=== PATIENT | female | born 1955 | race Caucasian/White ===

== ENCOUNTER 2019-06-06 19:24 | Inpatient (IN) | payer BC ==
[~2019-06-06] VITALS: Ht 157.5 cm; Wt 54.0 kg
[~2019-06-06 19:24] MED LIST: DEPAKOTE ER500 MG PO; HYDROCHLOROTHIA25 M2 PO; LISINOPRIL20 MG PO; NORCO 5-325 TA1 EACH PO
[2019-06-06 19:25] VITALS: BP 140/57
[2019-06-06] MEDS ORDERED: DEPAKOTE ER500 M1 PO (19:46)
[2019-06-06] MEDS ORDERED: LISINOPRIL2.5 MG PO (19:48)
[2019-06-06 20:35] LABS: ABSOLUTE NEUTROPHILS 10.2 thou/uL (1.4-8.2); BASOPHILS 0.5 % (0.0-2.0); EOSINOPHILS 0.7 % (0.0-3.0); HEMATOCRIT 37.1 % (37.0-47.0); LYMPHOCYTES 9.3 % (24.0-44.0); MCH 28.8 pg (26.0-34.0); MCHC 32.4 g/dL (28.0-37.0); MONOCYTES 4.6 % (1.0-8.0); PLATELET COUNT 197 thou/uL (150-400); POLYS 84.9 % (36.0-66.0); RBC 4.17 mil/uL (4.20-5.00); RDW 13.5 % (10.5-14.5)
[2019-06-06 20:46] LABS: ANION GAP 8 mmol/L (7-16); BUN 22 mg/dL (7-18); CALCIUM 9.4 mg/dL (8.5-10.1); CHLORIDE 100 mmol/L (98-107); CO2 31 mmol/L (21-32); CREATININE 0.9 mg/dL (0.6-1.0); GLUCOSE 87 mg/dL (74-106); POTASSIUM 3.9 mmol/L (3.5-5.1); SODIUM 139 mmol/L (136-145)
[2019-06-06 20:57] LABS: ALBUMIN 3.5 g/dL (3.4-5.0); DIRECT BILIRUBIN < 0.1 mg/dL (<0.1-0.2); LIPASE 142 U/L (73-393); SGOT 17 U/L (15-37); SGPT 10 U/L (30-65); TOTAL BILIRUBIN 0.3 mg/dL (<0.1-1.0); TROPONIN-I <0.06 ng/mL (<0.06)
[2019-06-06 22:16] LABS: URINE BILIRUBIN NEGATIVE (Negative); URINE BLOOD NEGATIVE (Negative); URINE CLARITY CLEAR; URINE COLOR YELLOW; URINE GLUCOSE-RANDOM* NEGATIVE (Negative); URINE KETONES TRACE (Negative); URINE LEUKOCYTES-REFLEX NEGATIVE (Negative); URINE NITRITE-REFLEX NEGATIVE (Negative); URINE PROTEIN (DIPSTICK) NEGATIVE (Negative); URINE UROBILINOGEN 0.2 E.U./dl (0.2-1.0)
[2019-06-06 23:27] VITALS: BP 131/65
[2019-06-07] VITALS (8 sets, daily range): BP systolic 93–118; BP diastolic 47–62
[2019-06-07 06:34] LABS: HEMOGLOBIN 11.5 gm/dL (12.0-15.0); MCH 29.2 pg (26.0-34.0); MCHC 32.7 g/dL (28.0-37.0); MCV 89.2 fL (80.0-100.0); RBC 3.93 mil/uL (4.20-5.00); RDW 13.5 % (10.5-14.5); WBC 8.1 thou/uL (4.0-11.0)
[2019-06-07 06:46] LABS: PROTIME 10.7 Seconds (9.3-11.4)
[2019-06-07 06:47] LABS: CALCIUM 8.7 mg/dL (8.5-10.1); CREATININE 0.7 mg/dL (0.6-1.0)
--- NOTE | 2019-06-07 08:08 | NUR ---
PT ARRIVED FROM ER AT 0200. ADMITTED WITH ABDOMINAL PAIN. AMBULATING TO BATHROOM WITH STANDBY ASSIST AND IS TOLERATING FAIR. DENIES NAUSEA. DENIES NEED FOR PAIN MEDICINE. RESTING COMFORTABLY. NO NEEDS VOICED. CALL LIGHT WITHIN REACH. FREQUENT OBSERVATION.
--- NOTE | 2019-06-07 18:30 | NUR ---
PT ASSESSED AT START OF SHIFT. OR NURSES CAME AFTER PT AT 1000 TO TAKE TO THE OR FOR HERNIA REPAIR. PT RETURNED AT 1445 ALERT BUT DROWSY. PT STATED SHE WAS IN SOME PAIN BUT FELL IMMEDIATELY TO SLEEP AND PHYSICIAN DTR AT BEDSIDE WANTED TO HOLD MED UNTIL MOTHER MORE ALERT. VS LOW AT FIRST THEN CAME UP. VOIDED ON BEDPAN. ABD BINDER IN PLACE NO DRAINAGE NOTED ON ABD DSNG. TAKING SOME CLEAR W/O NAUSEA. FAMILY CARING FOR PT AT BEDSIDE.
[2019-06-08] VITALS (61 sets, daily range): BP systolic 72–156; BP diastolic 32–75
[2019-06-08 06:47] LABS: HEMOGLOBIN 10.1 gm/dL (12.0-15.0); MCH 29.4 pg (26.0-34.0); MCHC 32.7 g/dL (28.0-37.0); MCV 90.1 fL (80.0-100.0); RBC 3.44 mil/uL (4.20-5.00); RDW 13.6 % (10.5-14.5); WBC 13.3 thou/uL (4.0-11.0)
[2019-06-08 07:01] LABS: ALBUMIN 2.4 g/dL (3.4-5.0); CREATININE 1.2 mg/dL (0.6-1.0); MAGNESIUM 1.4 mg/dL (1.8-2.4); TOTAL BILIRUBIN 0.7 mg/dL (<0.1-1.0); TOTAL PROTEIN 5.2 g/dL (6.4-8.2)
--- NOTE | 2019-06-08 08:42 | NUR ---
PT LYING IN BED. VOIDING PER BED OLIVARES. LORTAB PROVIDING PAIN RELIEF. DAUGHTER AT BEDSIDE. 0400--BLOOD PRESSURES RUNNING 80'S OVER 40'S. CONTACTED NURSE PRACTIONER WHO ORDERED A 500ML BOLUS OF NS--ADMINSTERED. OUTPUT FOR SHIFT 300ML. AFTER BOLUS BP REMAINS 84/40. CONTACTED RESIDENTIAL INSTALLER WHO ORDERED STAT LABS WELL A TRANSFER TO ICU. PT TRANSFERRED TO ICU RM 238 AT 0645.
--- NOTE | 2019-06-08 09:26 | NUR ---
pt down from 4s with changes vs. pt family, spouse and daugher jovi sue at bedside. intrto to cm. pt open and close eyes during visit. per family " independent, cook, clean, excerise daily. no dme needs. lots steps in the home. pt and spouse will be going to daughters sterling espana who only has 2 steps to enter then everything main level to recover after hospital. primary dr pierce no past home health or post acute rehab."/jorge espana. will cont following as needed for dc needs.
--- NOTE | 2019-06-08 11:24 | 2DMMODE ---
[facility] Jovanny [email or web address] [address] 2 D/M-MODE ECHOCARDIOGRAM Name: TIERRA BEST Room #: 238-P ADM IN M.R.#: [id number] Admission: 06/06/19 Attend Phys: Manuel Sanchez MD Discharge: Date of : 53 Report #: [id number] THIS REPORT FOR: cc: Nahomi Martínez MD, Rochelle M. MD Park, Jin S. MD ~ APPROVED REPORT Study performed: 06/08/2019 10:43:41 EXAM: Comprehensive 2D, Doppler, and color-flow Echocardiogram Patient Location: ICU Room #: 238 Status: routine BSA: 1.47 HR: 81 bpm BP: 94/49 mmHg Rhythm: NSR Other Information Study Quality: Technically Limited Technically limited study due to post operative dressings, inability to position patient. Indications Hypotension Post-op Volumes Left Atrial Volume (Systole) Single Plane 4CH: 27.85 mL Single Plane 2CH: 24.78 mL LA ESV Index: 20.00 mL/m2 Aortic Valve AoV Peak Vadim.: 1.55 m/s AO Peak Gr.: 9.63 mmHg LVOT Max P.91 mmHg LVOT Max V: 1.31 m/s Mitral Valve E/A Ratio: 1.1 MV Decel. Time: 174.75 ms MV E Max Vadim.: 1.34 m/s MV A Vadim.: 1.23 m/s MV PHT: 50.68 ms IVRT: 69.20 ms [facility] [address] [email or web address] [address] 2 D/M-MODE ECHOCARDIOGRAM Name: TIERRA BEST Room #: 238-P [facility] IN ..#: [id number] Admission: 06/06/19 Attend Phys: Manuel Sanchez MD Discharge: Date of : 53 Report #: [id number] Pulmonary Vein P Vein S: 0.59 m/s P Vein A: 0.31 m/s P Vein D: 0.42 m/s P Vein A Dur.: 110.7 msec P Vein S/D Ratio: 1.40 Tricuspid Valve TR Peak Vadim.: 2.74 m/s TR Peak Gr.: 30.04 mmHg PA Pressure: 30.00 mmHg Left Ventricle The left ventricle is normal size. There is normal LV segmental wall motion. There is normal left ventricular wall thickness. The left ventricular systolic function is normal. The left ventricular ejection fraction is within the normal range. LVEF is 55-60%. Right Ventricle The right ventricle is normal size. The right ventricular systolic function is normal. Atria The left atrium size is normal. The right atrium size is normal. Aortic Valve The aortic valve is normal in structure. No aortic regurgitation is present. There is no aortic valvular stenosis. Mitral Valve The mitral valve is normal in structure. There is no mitral valve regurgitation noted. No evidence of mitral valve stenosis. Tricuspid Valve The tricuspid valve is normal in structure. There is trace tricuspid regurgitation. Estimated PAP 30 mmHg plus the right atrial pressure. Pulmonic Valve The pulmonary valve is normal in structure. There is no pulmonic valvular regurgitation. Great Vessels The aortic root is normal in size. IVC is not well visualized. Pericardium [facility] [address] [place] [address] 2 D/M-MODE ECHOCARDIOGRAM Name: TIERRA BEST Room #: 238- ADM IN ..#: [id number] Admission: 06/06/19 Attend Phys: Manuel Sanchez MD Discharge: Date of : 53 Report #: [id number] There is no pericardial effusion. <Conclusion> The left ventricle is normal size. There is normal left ventricular wall thickness. The left ventricular systolic function is normal. The right ventricle is normal size. The left atrium size is normal. The aortic valve is normal in structure. There is no mitral valve regurgitation noted. There is trace tricuspid regurgitation. Estimated PAP 30 mmHg plus the right atrial pressure. <ELECTRONICALLY SIGNED> By: Hang De La Rosa MD 06/08/19 1123 1123 Jyoti Hang De La Rosa MD /INF
--- NOTE | 2019-06-08 17:46 | NUR ---
ASSESSMENTS AND INTERVENTIONS DOCCUMENTED. PATIENT TRANSFERRED TO ICU BY END MATCHER AND RN. PATIENT HAVING HYPOTENSION. FLUID BOLUS GIVEN PATIENT RESPONSIVE. DIASTOLIC BP STILL REMAINS LOW AT TIMES. PATIENT HAVING PAIN AND MEDICATION GIVEN. PATIENT RESTING QUIETLY THROUGH OUT THE SHIFT. ABX WERE STARTED PER KAMLESH. BLOOD CULTURES TO BE DRAWN. PATIENT NOT PROGRESSING TOWARDS GOALS AT THIS TIME EVIDENCE BY INTERMITTENT HYPOTENSION.
[2019-06-09] VITALS (16 sets, daily range): BP systolic 113–153; BP diastolic 35–90
[2019-06-09 04:55] LABS: ALBUMIN 2.2 g/dL (3.4-5.0); ANION GAP 9 mmol/L (7-16); BUN 11 mg/dL (7-18); CALCIUM 7.8 mg/dL (8.5-10.1); CHLORIDE 103 mmol/L (98-107); CO2 25 mmol/L (21-32); CREATININE 0.8 mg/dL (0.6-1.0); GLUCOSE 68 mg/dL (74-106); PHOSPHORUS 2.3 mg/dL (2.5-4.9); POTASSIUM 3.8 mmol/L (3.5-5.1); SODIUM 137 mmol/L (136-145); TROPONIN-I <0.06 ng/mL (<0.06)
[2019-06-09 05:24] LABS: HEMATOCRIT 31.9 % (37.0-47.0); HEMOGLOBIN 10.6 gm/dL (12.0-15.0); MCH 29.9 pg (26.0-34.0); MCHC 33.1 g/dL (28.0-37.0); MCV 90.1 fL (80.0-100.0); RBC 3.54 mil/uL (4.20-5.00); RDW 13.4 % (10.5-14.5); WBC 10.4 thou/uL (4.0-11.0)
--- NOTE | 2019-06-09 07:00 | NUR ---
ASSUMED CARE OF PT AT 2315. NO CHANGES OVERNIGHT. NO HYPOTENSION; MAP MAINTAINED > 65. PT C/O MINIMAL PAIN. PT IS PROGRESSING. WILL CONTINUE TO MONITOR.
--- NOTE | 2019-06-09 15:55 | NUR ---
ASSUMED CARE AT SHIFT CHANGE, ALERT AND ORIENTED X4. VSS AND RUNNING A LOW GRADE OF 99.1 AND NOW SHE IS BACK TO NORMAL. UP WALKING WITH FAMILY, AND DENIES ANY DIZZINESS. PAIN 2-3/10, AND MEDICATED WITH SCHEDULED TYLENOL. AND WILL CONTINUE WITH POC.
[2019-06-10 00:16] VITALS: BP 123/57
--- NOTE | 2019-06-10 03:44 | NUR ---
ASSUMED PT CARE AROUND 191. AXOX3. DTR AT BEDSIDE AT ALL TIMES TO ACCOMODATE PT NEEDS. ASKED DTR TO CALL NURSING FOR BATHROOM FOR ACCURATE I&O AND BM. NEEDS REINFORCEMENT. 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 PT'S VERBALLY CONSENTED DTR'S PARTICIPATION MEDICAL DECISIONS. RICKY CHO TRUCK GUARD WAS REACHED OUT AND DYNAMITE PACKING MACHINE OPERATOR WILL NOT CHANGE PRESCRIBED IV ATB OR PUT PT ON ALTERNATIVE ATB. PT REFUSED IV ATB AND WANTS TO SPEAK TO IN AM AND DISCUSS POSS DIFFERENT ATB. PT ALSO REFUSED IBUPROFEN PER DTR'S REC. CHARTED ACCORDINGLY. ABD DRESSINGS WERE CHANGES AT BEDSIDE PER MD ORDER. NO S/S ACUTE DISTRESS NOTED OR REPORTED AT THIS TIME. WILL CONT TO MONITOR FOR ANY CHANGES IN CONDITION.
[2019-06-10 05:00] VITALS: BP 126/63
[2019-06-10 05:27] LABS: ABSOLUTE NEUTROPHILS 6.7 thou/uL (1.4-8.2); BASOPHILS 0.4 % (0.0-2.0); EOSINOPHILS 1.1 % (0.0-3.0); HEMATOCRIT 28.1 % (37.0-47.0); HEMOGLOBIN 9.4 gm/dL (12.0-15.0); LYMPHOCYTES 15.8 % (24.0-44.0); MCH 29.8 pg (26.0-34.0); MCHC 33.4 g/dL (28.0-37.0); MCV 89.2 fL (80.0-100.0); MONOCYTES 7.9 % (1.0-8.0); PLATELET COUNT 161 thou/uL (150-400); POLYS 74.8 % (36.0-66.0); RBC 3.15 mil/uL (4.20-5.00); RDW 13.3 % (10.5-14.5); WBC 8.9 thou/uL (4.0-11.0)
[2019-06-10 05:34] LABS: ALBUMIN 2.1 g/dL (3.4-5.0); CALCIUM 7.6 mg/dL (8.5-10.1); CREATININE 0.8 mg/dL (0.6-1.0); MAGNESIUM 1.7 mg/dL (1.8-2.4); POTASSIUM 3.7 mmol/L (3.5-5.1)
[2019-06-10 16:30] VITALS: BP 143/66
--- NOTE | 2019-06-10 16:41 | NUR ---
Assumed pt care at 7am.Pt in bed resting without c/o.Dtr at bs at all times assisting with care.Pt up in chair for all meals.Good appetite.Dr mauro and Zabrina here.order noted.Pt ambulated in hallways with dtr several times today. Good endurance noted.Lower extremities elevated whenever pt in chair resting.Will continue to monitor.
[2019-06-10 20:00] VITALS: BP 105/80
[2019-06-10 23:42] VITALS: BP 123/53
[2019-06-11 01:11] LABS: CORTISOL 30 MIN 16.6 ug/dL (Not Estab.); CORTISOL 60 MIN 25.7 ug/dL (Not Estab.); CORTISOL BASELINE 7.7 ug/dL (())
--- NOTE | 2019-06-11 07:21 | NUR ---
ASSUMED PT CARE AROUND 1914. AXOX4. ABD DRESSING CHANGED. VSS. NO S/S ACUTE DISTRESS NOTED OR REPORTED AT THIS TIME. CARE TRANSFERRED TO INCOMING RN AT THIS TIME. CARE TRANSFERRED TO INCOMING RN AT THIS TIME.
[2019-06-11] MEDS ORDERED: TRAMADOL 50 MG50 MG PO (08:18)
[2019-06-11 08:47] LABS: HEMATOCRIT 29.7 % (37.0-47.0); HEMOGLOBIN 9.7 gm/dL (12.0-15.0); MCH 29.3 pg (26.0-34.0); MCHC 32.6 g/dL (28.0-37.0); MCV 89.8 fL (80.0-100.0); RBC 3.31 mil/uL (4.20-5.00); RDW 13.4 % (10.5-14.5); WBC 6.4 thou/uL (4.0-11.0)
[2019-06-11 08:59] LABS: ALBUMIN 2.2 g/dL (3.4-5.0); CALCIUM 8.8 mg/dL (8.5-10.1); CREATININE 0.7 mg/dL (0.6-1.0); MAGNESIUM 1.7 mg/dL (1.8-2.4); PHOSPHORUS 2.9 mg/dL (2.5-4.9); POTASSIUM 3.7 mmol/L (3.5-5.1)
--- NOTE | 2019-06-11 09:34 | HC ---
[facility] [place] [address] CONSULTATION Name: TIERRA BEST Room #: 455-P ADM IN M.R.#: [id number] Admission: 06/06/19 Attend Phys: Eulalia Brooks Discharge: Date of : 53 Report #: [id number] THIS REPORT FOR: cc: Nahomi Martínez MD, Rochelle M. MD Al-Mubaslat, Ahmad MD ~ CC: Eulalia Martínez DATE OF SERVICE: 06/10/2019 ENDOCRINE CONSULTATION NOTE CONSULTING PHYSICIAN: Dr. Eulalia Brooks. PRIMARY CARE PHYSICIAN: Dr. Nahomi Martínez. REASON FOR CONSULTATION: Hypotension, hypocortisolemia. HISTORY OF PRESENT ILLNESS: This is a 64-year-old female patient whose medical background is primarily significant for hypertension, hyperlipidemia, who presented to the ER on 05/28/2019 with the main issue of sudden onset lower abdominal pain starting the day of admission. This was associated with nausea and vomiting. Subsequently, the patient was admitted to the hospital where she was found to have a ventral hernia with small-bowel obstruction and underwent a repair with mesh placement and did well thereafter. However, during her hospital stay, the patient was noted to become hypotensive requiring fluid resuscitation. The patient had blood pressure as low as 72/32 recorded during this period and again eventually did well with fluid support. Interestingly, the patient's background is significant for hypertension that is typically well controlled on lisinopril monotherapy. The patient notes that she has lost over 50 pounds during the last year, partially due to becoming more active and exercising dietary changes. She does not typically experience a chronic abdominal pain, nausea or vomiting. The patient's daughter who is a tail ripper indicated that her mom had at least 5 bouts of syncope over the past year and that these were generally attributed to hypotension, which led to some therapeutic changes of her antihypertensive regimen. REVIEW OF SYSTEMS: CONSTITUTIONAL: Fatigue, tiredness, weight loss as noted above. No fever or chills. HEENT: Negative for sore throat, sinus pain, ear drainage. [facility] [address] [place] [address] CONSULTATION Name: TIERRA BEST Room #: 455-P ADM IN M.R.#: [id number] Admission: 06/06/19 Attend Phys: Eulalia Brooks Discharge: Date of : 53 Report #: [id number] PULMONARY: Negative for shortness of breath, cough or hemoptysis. CARDIAC: Negative for chest pain, palpitations, but noted for multiple syncopal episodes over the past year as well as occasional lightheadedness. Also noted for hypotension recorded earlier during her hospital stay. GASTROINTESTINAL: Noted for recent abdominal pain, but not chronically. Noted for nausea and vomiting, but not chronically. She has had chronic issues with constipation. NEUROLOGY: Negative for seizure activity, frequent severe headaches, numbness, or tremors. PSYCHIATRIC: Negative for delusions or hallucinations. UROLOGY: Negative for dysuria, hematuria, or frequency. Otherwise, review of system is noncontributory unless mentioned in HPI. PAST MEDICAL HISTORY: Noted for: 1. Hypertension. 2. Hyperlipidemia. 3. Anxiety. CURRENT MEDICATIONS: Include lisinopril 20 mg daily, Depakote ER 500 mg b.i.d. ALLERGIES: PENICILLIN. FAMILY HISTORY: Noncontributory. SOCIAL HISTORY: She is , has children. Lives with her . Denies use of tobacco or alcohol. PHYSICAL EXAMINATION: GENERAL: Pleasant female patient not in apparent distress. VITAL SIGNS: Blood pressure currently is at 126/63 mmHg, heart rate is 88 beats per minute, respirations 18 per minute, temperature 36.9 degrees. CONSTITUTIONAL: The patient is sitting upright in her chair, appears comfortable, not in pain or distress. HEENT: Anicteric sclerae. Intact extraocular motions. NECK: Supple, without JVD, carotid bruits and no thyromegaly. CHEST: Noted for moderate entry bilaterally with scattered rales. HEART: Regular rate and rhythm without murmurs or gallops. ABDOMEN: Soft and lax. No tenderness or organomegaly. Slight discomfort on deep palpation. EXTREMITIES: Lower extremity exam is negative for edema, skin breaks or ulcerations. NEUROLOGIC: Awake, alert, oriented and has a generally nonfocal examination. PSYCHIATRIC: Normal mood and affect appropriate, pleasant. LABORATORY DATA: Sodium 140, it remained well within normal limits throughout her hospital stay and ranged from 136-140, potassium 3.7, ranged from 3.7-4.0, [facility] [address] [place] [address] CONSULTATION Name: TIERRA BEST Room #: 455-P ADM IN M.R.#: [id number] Admission: 06/06/19 Attend Phys: Eulalia Brooks Discharge: Date of : 53 Report #: [id number] chloride 106, CO2 of 27, anion gap 7, BUN 9, creatinine 0.8, glucose 89, AST 15, lipase 142. Total bilirubin 0.7, calcium 7.6, phosphorus 2.0, magnesium 1.7, alkaline phosphatase 48, ALT 6, total protein 5.2, albumin 2.1. EGFR is 72. Lactic acid 1.2. Troponin less than 0.06. Protime 10.7, INR 1.0. White blood count 8.9, hemoglobin 9.4, hematocrit 28.1, platelets 161. TSH 4.858. Morning cortisol 3.7. ASSESSMENT AND PLAN: 1. Hypotension. As noted above, the patient developed severe hypotension requiring fluid resuscitation, which she responded to adequately. In addition to the possibility of low serum cortisol, others would include dehydration, possible sepsis, neurocardiogenic syndrome. At the time being, the patient is maintaining adequate blood pressure stability. I was pleased to find out that her daughter is a tail ripper and has been monitoring her blood pressure closely at home and is certainly capable of resuming lisinopril when deemed necessary going forward. 2. Hypocortisolemia. The possibility of hypocortisolemia (adrenal insufficiency) was suspected due to the patient's transition from her usual hypertensive baseline to hypotension. Screening cortisol level was further suspicious at 3.7. Appropriately, the patient was investigated further with a cosyntropin adrenal stimulation test, the results of which remain pending at the time of this dictation. The patient and her daughter were counseled at length about this outlook and the possibility of adrenal insufficiency. I advised her about the pathogenesis of adrenal insufficiency and about the potential role for glucocorticoids in the event that it is proven to be the case. However, I remain optimistic that she might not prove to be adrenally insufficient on the basis of her consistently stable potassium and sodium levels. Once the results are in, we can proceed with further management. 3. Hypothyroidism. The patient has an elevated TSH of 4.858. The patient was informed of this finding and I explained that this falls within the realm of subclinical hypothyroidism. Given the patient's acute illness, recent hypertension and hospital stay, I strongly preferred that the issue of hypothyroidism be revisited with a comprehensive thyroid function panel once the patient has stabilized clinically and resolved the current events in 2-3 months from now. I discussed this preference with the patient's daughter and she agreed to proceed with this or in this direction. I have reviewed the patient's clinical care notes, laboratory data, radiologic data, and other pertinent information for over 35 minutes. I certainly appreciate this consultation by Dr. Brooks. <ELECTRONICALLY SIGNED> By: Aretha Salazar MD 06/11/19 0934 1642 0017 Aretha Salazar MD /nt
[2019-06-11 09:46] VITALS: BP 123/53
--- NOTE | 2019-06-11 10:43 | NUR ---
CARE TEAM INDICATED THAT PT IS MEDICALLY STABLE TO DISCHARGE HOME THIS DAY TO SELF CARE . PT IS TO DISCHARGE TO HER DT HOUSE FOR ADDITIONAL SUPPORT UPON DC. NO OTHER CM INTERVENTION INDICATED. CASE CLOSED.
--- NOTE | 2019-06-11 10:44 | NUR ---
Assumed pt care this am, daughter is at the bedside, ambulating the halls with the daughter. Wound dressing c/d/i, diet and medications are well tolerated. Pain is at a minimal of 2 and managed only with acetamenophen. Several bowel movements have been noted yesterday and one today, some medications have been refused. IV removed no signs or verbalizations of distress have been noted. POC followed, dc instrustions given to the daughter and the pt. Pt is now dc , went home with daughter and .
--- NOTE | 2019-06-12 15:34 | EKG ---
[facility] [place] [address] ELECTROCARDIOGRAM REPORT Name: TIERRA BEST Room #: 455-P [facility] IN M.R.#: [id number] Admission: 06/06/19 Attend Phys: Eulalia Flakito Todd Discharge: 06/11/19 Date of : 53 Report #: [id number] THIS REPORT FOR: cc: Nahomi Martínez MD, Rochelle M. MD Park, Jin S. MD ~ THIS REPORT FOR: //name// [facility] ED Test Date: 2019-06-06 Test Time: 19:49:24 Pat Name: TIERRA BEST Department: Room: 444 Gender: F Research/Program Director: YEIMY : 1955 Requested By: Magy Lindsey Order Number: [id number] MD: Hang De La Rosa Measurements Intervals [place] Rate: 58 P: 63 RI: 172 QRS: 61 QRSD: 73 T: 61 QT: 431 QTc: 424 Interpretive Statements Sinus rhythm Abnormal R-wave progression, early transition No previous ECG available for comparison Electronically Signed On 06-07-2019 10:09:16 BMET by Hang De La Rosa [email or web address] <ELECTRONICALLY SIGNED> By: Hang De La Rosa MD 06/07/19 100 48 48 Hang De La Rosa MD /[facility]
--- NOTE | 2019-06-13 07:47 | O ---
[facility] [place] [address] OPERATIVE REPORT Name: TIERRA BEST Room #: 455-P [facility] IN M.R.#: [id number] Admission: 06/06/19 Attend Phys: Eulalia Brooks Discharge: 06/11/19 Date of : 53 Report #: [id number] THIS REPORT FOR: cc: Nahomi Martínez MD, Rochelle M. MD Patterson, Jonathan D. MD ~ CC: Carl Martínez DATE OF SERVICE: 06/07/2019 PREOPERATIVE DIAGNOSIS: Recurrent ventral incisional hernia. POSTOPERATIVE DIAGNOSIS: Incarcerated recurrent ventral incisional hernia. OPERATION: Laparoscopic repair of recurrent incarcerated ventral incisional hernia with mesh. SURGEON: Carl Smith MD ANESTHESIA: General. ESTIMATED BLOOD LOSS: 20 mL. SPECIMEN: None. DRAINS: None. DESCRIPTION OF PROCEDURE: After informed consent was obtained, the patient was brought to the operating room and placed supine. SCDs were placed and working, preoperative antibiotics were administered, general anesthesia was induced. The abdomen was then prepped and draped in the usual sterile fashion. A 5 mm incision was made in the left upper quadrant. A 5 mm trocar was placed under direct vision. Pneumoperitoneum was established. A left-sided 8 mm trocar and two 5 mm right-sided trocars were placed under direct vision. She had incarcerated small bowel and transverse colon into this hernia sac. I was not able to reduce this using just the laparoscope. Therefore, the pneumoperitoneum was then released. I made an incision over the hernia measuring approximately 10 cm. Cautery dissection was made down to the hernia sac. I was able to dissect the sac away from the fascial edges and reduce everything back into the abdomen. I then worked to clean off the fascia, so that I could put stitches. I then closed the fascia in a running fashion [address] [address] OPERATIVE REPORT Name: TIERRA BEST Room #: 455-P [facility] IN ..#: [id number] Admission: 06/06/19 Attend Phys: Eulalia Brooks Discharge: 06/11/19 Date of : 53 Report #: [id number] with 0 PDS. This closed the fascial defect, which measured approximately 8 cm in the midline. Prior to closure, I placed a 4 x 6 inch elliptical Bard Ventralight Echo mesh. Pneumoperitoneum was then reestablished. The Bard Echo mesh tubing was inflated. It was brought to the abdominal wall. I was then able to place 50 absorbable tacks to secure the mesh. The green tubing was then removed. I then placed 2 Midwest-Ovidio sutures in the midline using a PMI suture passer for transfascial fixation. The trocars were removed under direct vision. The skin was closed with micki. Sterile dressings were applied. COMPLICATIONS: None. DISPOSITION: The patient was taken to recovery in satisfactory condition. <ELECTRONICALLY SIGNED> By: Carl Smith MD 06/13/19 0747 1250 1826 Carl Smith MD /nt
== END 2019-06-11 10:59 | disposition home or self-care (01) | DRG 353 ==
LOC: ER 19:24 → 4W 22:41 → EROBS 22:41 → ICU 22:41 → 4S 06-07 00:08 → ICU 06-08 08:10 → 4W 06-09 17:01 → ENTRNSPT 06-11 10:44 → EDTRNSPTSTS 06-11 10:49 → 4W 06-11 10:59
PROVIDERS: Nurse Practitioner; Nurse Practitioner Family; Surgery; ADMIT Hospitalist
PROC: 0WJF4ZZ Inspection of Abdominal Wall, Percutaneous Endoscopic Approach (ICD-10-PCS; principal; 2019-06-07)
PROC: 0WUF0JZ Supplement Abdominal Wall with Synthetic Substitute, Open Approach (ICD-10-PCS; principal; 2019-06-07)
DX: K56.699 Other intestinal obstruction unspecified as to partial versus complete obstruction (principal); E43 Unspecified severe protein-calorie malnutrition; K43.0 Incisional hernia with obstruction, without gangrene; J98.11 Atelectasis; E27.40 Unspecified adrenocortical insufficiency; I10 Essential (primary) hypertension; E78.5 Hyperlipidemia, unspecified; F41.9 Anxiety disorder, unspecified; I95.9 Hypotension, unspecified; E78.00 Pure hypercholesterolemia, unspecified; Z90.49 Acquired absence of other specified parts of digestive tract; Z88.0 Allergy status to penicillin; E03.9 Hypothyroidism, unspecified; Z79.899 Other long term (current) drug therapy; Z68.21 Body mass index [BMI] 21.0-21.9, adult
CPT/HCPCS: 10040; 10078; 10195; 50010; 50093; 50101; 50249; 50411; 50555; 50848; 50979; 51412; 52265; 53307; 54022; 56524; 62110; 62900; 70005

== ENCOUNTER 2020-06-23 00:56 | Inpatient (IN) | payer BC ==
[2020-06-23] VITALS (8 sets, daily range): BP systolic 123–174; BP diastolic 71–100
[~2020-06-23] VITALS: Ht 157.5 cm; Wt 65.9 kg
[~2020-06-23 00:56] MED LIST changes: +DEPAKOTE ER500 M1 PO; +LISINOPRIL2.5 MG PO; +TRAMADOL 50 MG50 MG PO
[2020-06-23 01:28] LABS: ABSOLUTE NEUTROPHILS 5.3 thou/uL (1.4-8.2); BASOPHILS 0.8 % (0.0-2.0); HEMOGLOBIN 13.1 gm/dL (12.0-15.0); LYMPHOCYTES 23.6 % (24.0-44.0); MCH 29.2 pg (26.0-34.0); MCHC 32.8 g/dL (28.0-37.0); MONOCYTES 4.1 % (1.0-8.0); PLATELET COUNT 190 thou/uL (150-400); POLYS 68.5 % (36.0-66.0); RBC 4.49 mil/uL (4.20-5.00); RDW 12.8 % (10.5-14.5); WBC 7.8 thou/uL (4.0-11.0)
[2020-06-23 01:48] LABS: POTASSIUM 3.4 mmol/L (3.5-5.1)
[2020-06-23 01:54] LABS: ALBUMIN 3.6 g/dL (3.4-5.0); TOTAL BILIRUBIN 0.4 mg/dL (0.2-1.0); TOTAL PROTEIN 7.7 g/dL (6.4-8.2)
[2020-06-23 02:24] LABS: URINE BILIRUBIN NEGATIVE (Negative); URINE BLOOD NEGATIVE (Negative); URINE CLARITY CLEAR; URINE COLOR YELLOW; URINE GLUCOSE-RANDOM* NEGATIVE (Negative); URINE KETONES NEGATIVE (Negative); URINE LEUKOCYTES-REFLEX NEGATIVE (Negative); URINE NITRITE-REFLEX NEGATIVE (Negative); URINE PROTEIN (DIPSTICK) NEGATIVE (Negative); URINE SPECIFIC GRAVITY 1.025 (1.005-1.035); URINE UROBILINOGEN 0.2 E.U./dl (0.2-1.0)
--- NOTE | 2020-06-23 06:45 | NUR ---
Pt. arrived to the unit from the emergency room accompanied by staff. Pt. is alert and was oriented to room and staff. She does c/o some abdominal pain. No med orders. Call placed to Dr. Smith for orders.
--- NOTE | 2020-06-23 07:00 | NUR ---
Dr. Smith returned call and new orders received (see cpoe).
--- NOTE | 2020-06-23 13:59 | NUR ---
PT ADMITTED RELATED TO SBO, ABDOMINAL PAIN. CM REVIEWED CHART AND SPOKE WITH CARE TEAM. CM MET WITH PT AND HER DTR DR. MARISOL NELSON AT BEDSIDE THIS DAY. DTR INDICATED THAT WAS DOING HER AFTERNOON PRAYERS BUT THAT IT WAS ALRIGHT FOR CM TO VISIT AND SPEAK WITH THEM AT THAT TIME. DTR ANSWERED ALL ASSESSMENT QUESTIONS. 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 SHE INDICATED THAT PT HAD BEEN INDEPENDENT WITH GAIT BUT NEEDED ASSISTANCE WITH ADLS LIKE BATHING, AND COOKING. PT'S DTR INDICATED THAT PT'S DTR SEN WORKS FROM HOME AND ASSISTS PT WITH ADLS. PT'S DTR INDICATED NO HH OR POST ACUTE CARE HISTORY. SHE INDICATED THAT PLAN WOULD BE FOR PT TO RETURN HOME ONCE MEDICALLY STABLE TO SELF CARE THAT FAMILY WILL PROVIDE ALL NEEDED ASSISTANCE AND SUPERVISION. DTR INDICATED THAT PT HAS SOME COGNITVE IMPAIRMENT AND THAT SHE DOESN'T THINK PT IS APPROPRIATLY/CORRECTLY RATEING PAIN WHEN ASSESSED BY NURSING TEAM DTR EXPRESSED CONCERN ABOUT OVER USE/ADMINISTRATION OF NARCOTIC MEDICATIONS AND PT'S RISK FOR "RESPIRATORY DEPRESSION." SHE INDICATED THAT SHE WAS WANTING TO BE ABLE TO STAY OVERNIGHT WITH PT TO MONITOR AND BE ABLE TO ALERT STAFF OF ANY ISSUE. DTR HAD REACHED OUT TO HOSPITAL STAFF REGARDING REQUEST. COLLECTIONS REP AND RISK ARE INVOLVED AND WORKING TO DETEMINE PLAN. DTR ASKED ABOUT COMPLETING A DPOA WHILE HERE. CM INDICATED THAT IF CARE TEAM INDICATED THAT PT HAS CAPACITY TO DO SO A MEDICAL DPOA CAN BE COMPLETED HERE BUT THAT HAVING SAID DOCUMENT LIKELY WOULDN'T AFFECT ABILITY TO STAY OVER NIGHT. PT HAS NG IN PLACE AT THIS TIME. CM FOLLOWING REGARDING DC PLANNING.
--- NOTE | 2020-06-23 21:06 | NUR ---
ASSUMED CARE OF PATIENT APPROX 0715. PATIENT A&OX2, VSS, ABDOMINAL PAIN. DAUGHTER AT BEDSIDE. HOSPITALIST CONSULTED PER ATTENDING. PATIENT HAS NG TUBE, LOW INTERMETTENT SUCTION. PATIENT ROUNDED ON OFTEN. PATIENTS DAUGHTER IS VERY HANDS ON, THIS NURSE OFFERED ASSISTANCE OFTEN POSSIBLE. PATIENT SBA TO BEDSIDE COMMODE. PATIENTS DAUGHTER WANTS TO STAY OVERNIGHT WITH PATIENT, STATING PATIENT HAS DEMENTIA AND IT WOULD BE IN THE BEST INTEREST OF A COGNITIVELY IMPAIRED PATIENT TO HAVE AN ADVOCATE STAY WITH HER. DAUGHTER STATES PATIENT IS A POOR HISTORIAN. PATIENT HAS 1:1 SITTER OF NOW. PATIENT IS NOT IMPULSIVE, MOVED CLOSER TO NURSES STATION, TAKING PRECAUTIONS. PATIENT ON ROOM AIR. NO SIGNS OF DISTRESS. PATIENT HAS TWO IVS, FLUIDS RUNNING. WILL CONTINUE TO MONITOR.
[2020-06-24] VITALS (22 sets, daily range): BP systolic 90–158; BP diastolic 38–88
--- NOTE | 2020-06-24 02:44 | NUR ---
PT CARE ASSUMED WITH PT IN BED WITH DAUGHTER AT BEDSIDE.PT IS A/O X2.PT IS UP WITH X1 ASSIST TO BSC OR USES BEDPAN.PT C/O PAIN AND PAIN MANAGED WITH MORPHINE Q3H.DAUGHTER REQUEST NET TECHNICAL ARCHITECT OR PROVIDER TO ATTEND TO PT AT ABOUT 0200 PT C/O OF PAIN AND ASKED MORPHINE CHANGED FROM Q3H TO Q2H.PT HAS AN NG IN PLACE FOR INTERMITENT SUCTIONING .PT IS NPO.PT HAS A SITTER REQUESTED BY DAUGHTER FOR COGNITIVE IMPAIRMENTS.DAUGHTER HIGHLY INVOLVED IN PT CARE.WILL CONTINUE TO MONITOR PER POC
[2020-06-24 05:36] LABS: HEMATOCRIT 42.7 % (37.0-47.0); HEMOGLOBIN 13.9 gm/dL (12.0-15.0); MCHC 32.4 g/dL (28.0-37.0); MCV 89.5 fL (80.0-100.0); RBC 4.77 mil/uL (4.20-5.00); RDW 12.8 % (10.5-14.5); WBC 13.5 thou/uL (4.0-11.0)
[2020-06-24 06:05] LABS: CALCIUM 8.3 mg/dL (8.5-10.1); CREATININE 0.9 mg/dL (0.6-1.0); MAGNESIUM 2.1 mg/dL (1.8-2.4); POTASSIUM 4.1 mmol/L (3.5-5.1)
--- NOTE | 2020-06-24 14:54 | NUR ---
SURGICAL TEAM INDICATING THAT PT IS TO GO FOR AN EX LAP THIS DAY WITH POSSIBLE LAPAROSCOPY. FAMILY HAS EXPRESSED DESIRE FOR PT TO DC TO CCU POST PRODEDURE. CM FOLLOWING REGARDING DC PLANNING. PLAN IS FOR PT TO RETURN HOME ONCE MEDICALLY STABLE WITH FAMILY SUPPORT.
[2020-06-24 19:52] LABS: HEMATOCRIT 45.8 % (37.0-47.0); MCH 29.4 pg (26.0-34.0); MCHC 32.6 g/dL (28.0-37.0); MCV 90.2 fL (80.0-100.0); RBC 5.08 mil/uL (4.20-5.00); WBC 9.8 thou/uL (4.0-11.0)
[2020-06-24 20:01] LABS: MAGNESIUM 1.8 mg/dL (1.8-2.4); PHOSPHORUS 3.2 mg/dL (2.6-4.7); POTASSIUM 3.9 mmol/L (3.5-5.1)
[2020-06-25] VITALS (45 sets, daily range): BP systolic 100–130; BP diastolic 39–73
[2020-06-25 01:07] LABS: URINE CREATININE-RANDOM* 209.6 mg/dL; URINE SODIUM-RANDOM* <5 mmol/L
--- NOTE | 2020-06-25 02:45 | NUR ---
PT ARRIVED TO UNIT AT APPROX 1915 FROM PACU. PT WAS AXOX4, WEARING 2L NC. SEE CHARTING FOR VITALS SIGNS. NURSE TO FOLLOW PLAN OF CARE AND CONTINUE MONIORING.
[2020-06-25 05:08] LABS: HEMATOCRIT 42.9 % (37.0-47.0); MCH 29.3 pg (26.0-34.0); MCHC 32.6 g/dL (28.0-37.0); MCV 90.1 fL (80.0-100.0); RBC 4.76 mil/uL (4.20-5.00); RDW 12.9 % (10.5-14.5); WBC 16.6 thou/uL (4.0-11.0)
[2020-06-25 05:43] LABS: CALCIUM 7.6 mg/dL (8.5-10.1); MAGNESIUM 1.7 mg/dL (1.8-2.4); PHOSPHORUS 2.8 mg/dL (2.5-4.9)
--- NOTE | 2020-06-25 07:50 | NUR ---
Assumned pt care in the am of 06/24, had a sitter, though pt was not impulsive or exhibited any behaviour that would require one. Pt was calm and on the bed with NG tune connected on low intermittent suction, draining dark green fluid. Pain is managed with medication, partial relief is noted. Pt had a lap top where is the camera was open since the night and the daughters we on watching. Daughter would converse with the nurses and the pt through the laptop and daughter would prefer to spean in behalf of the pt, stating pt is cognitively impared. Though when I spoke to the pt, she is able to verbalize level or pain and location, pt is a & o x 3, was just not sure of the time. Daughter came to the bed side in the am. Pt would use the bed side commode, frequent visits to the romm was done through out the shift, pt needs attended. Surgeon came in and spoke to the pt and the daughter for surgery in the afternoon. Daughter repeatedly mentioned she wanted the pt to be transferred to either ccu or icu, informed. Pt was taken down to surgery at 3 pm, was then transferred to room 251 as per madison sup post op. Belongings were endorsed to the shift production supervisor to be sent doen to roon 251.
--- NOTE | 2020-06-25 10:30 | NUR ---
0700-ASSUMED CARE OF PT.--VW 0830-CHANGED MIDLINE ABD DRSG. SMALL AMT MURKY BROWN DRAINAGE SEEPING FROM INCISION. W LIGHT PRESSURE TO BOTH SIDES OF INCISION, ~30ML PUSSY LOOKING BROWN DRAINAGE EXPRESSED. REDRESSED. INFORMED , HE WILL BE IN ~1300.--VW 0905-PT GOTTEN OOB TO CHAIR W ASSIST OF ONE. DID VERY WELL,STEADY ON FEET.MED FOR PAIN PRIOR TO GETTING UP. SETTLED INTO CHAIR. DTR AT BEDSIDE.--VW 1030- IN TO SE.-VW
[2020-06-25 14:20] LABS: URINE BLOOD 1+ (Negative); URINE CLARITY CLEAR; URINE COLOR YELLOW; URINE GLUCOSE-RANDOM* NEGATIVE (Negative); URINE KETONES NEGATIVE (Negative); URINE LEUKOCYTES TRACE (Negative); URINE NITRITE NEGATIVE (Negative); URINE PROTEIN (DIPSTICK) 1+ (Negative); URINE SPECIFIC GRAVITY >= 1.030 (1.005-1.035); URINE UROBILINOGEN 0.2 E.U./dl (0.2-1.0)
[2020-06-25 14:24] LABS: ICTOTEST (BILI CONFIRMATORY) Negative (Negative); URINE BILIRUBIN NEGATIVE (Negative)
[2020-06-25 14:32] LABS: PROT/CREAT RATIO 0.4; URINE CREATININE-RANDOM* 202.8 mg/dL; URINE PROTEIN-RANDOM* 86.5 mg/dL (<11.9)
[2020-06-25 14:38] LABS: MUCUS 0-3 Light strn/LPF (None Seen); SQUAMOUS None Seen /LPF (0-3)
[2020-06-25 14:39] LABS: HYALINE CASTS 0-3 Few /LPF (None Seen); URINE RBC 3-10 Few /HPF (0-2); URINE WBC 0-5 Rare /HPF (0-5)
[2020-06-25 14:40] LABS: BACTERIA 1-9 Few /HPF (None Seen); CRYSTALS None Seen /LPF (None Seen)
[2020-06-25 16:53] LABS: CALCIUM 7.9 mg/dL (8.5-10.1); CREATININE 1.2 mg/dL (0.6-1.0)
[2020-06-26] VITALS (23 sets, daily range): BP systolic 115–138; BP diastolic 51–77
--- NOTE | 2020-06-26 06:32 | NUR ---
AT 2300 PT DPOA MARISOL NELSON CALLED FOR AN UPDATE ON THE PTS CONDITION. I MENTIONED THAT WHEN THE PT FELL ASLEEP SHE REQUIRED 1L NC. MARISOL WAS THEN CONCERNED THAT THE PT COULD BE VOLUME OVERLOADED WITH PULMONARY EDEMA. SHE REQUESTED THAT I CALL THE COVERING PROVIDER AND ASK THAT THEY CHANGE HER LR RATE FROM 100ML/HR TO 50CC/HR. 0231: PTS DPOA CALLED FOR AN UPDATE. 0615: PTS DPOA CALLED FOR AN UPDATE AND WANTED TO KNOW WHAT HER AM LABS LOOKED LIKE. I TOLD HER THAT THE LABS HADN'T RESULTED YET.
[2020-06-26 07:42] LABS: HEMOGLOBIN 10.2 gm/dL (12.0-15.0); MCH 29.2 pg (26.0-34.0); MCV 88.6 fL (80.0-100.0); RBC 3.5 mil/uL (4.20-5.00); RDW 13.1 % (10.5-14.5); WBC 15.7 thou/uL (4.0-11.0)
[2020-06-26 07:47] LABS: CALCIUM 7.6 mg/dL (8.5-10.1); CREATININE 0.8 mg/dL (0.6-1.0); MAGNESIUM 2.2 mg/dL (1.8-2.4); POTASSIUM 3.6 mmol/L (3.5-5.1)
[2020-06-27] VITALS (15 sets, daily range): BP systolic 119–148; BP diastolic 49–77
[2020-06-27 03:08] LABS: ALBUMIN 1.8 g/dL (3.4-5.0); CALCIUM 7.4 mg/dL (8.5-10.1); CALCIUM 7.6 mg/dL (8.5-10.1); CREATININE 0.7 mg/dL (0.6-1.0); PHOSPHORUS 1.3 mg/dL (2.5-4.9); PHOSPHORUS 1.4 mg/dL (2.5-4.9); POTASSIUM 3.3 mmol/L (3.5-5.1)
[2020-06-27 09:17] LABS: MAGNESIUM 1.9 mg/dL (1.8-2.4)
[2020-06-27 12:10] LABS: BASOPHILS 0.4 % (0.0-2.0); EOSINOPHILS 0.9 % (0.0-3.0); HEMATOCRIT 32.1 % (37.0-47.0); HEMOGLOBIN 10.8 gm/dL (12.0-15.0); LYMPHOCYTES 4.8 % (24.0-44.0); MCH 29.9 pg (26.0-34.0); MCHC 33.6 g/dL (28.0-37.0); MONOCYTES 3.5 % (1.0-8.0); PLATELET COUNT 160 thou/uL (150-400); POLYS 90.4 % (36.0-66.0); WBC 16.6 thou/uL (4.0-11.0)
--- NOTE | 2020-06-27 12:37 | NUR ---
chart review. discussed during am rounds. cm tried to visit with pt, noted through windows daughter at bedside and sayeeda up in recliner chair resting with eyes closed. will cont following as needed for dc needs.
[2020-06-27 16:18] LABS: URINE BILIRUBIN NEGATIVE (Negative); URINE BLOOD TRACE (Negative); URINE CLARITY CLEAR; URINE COLOR YELLOW; URINE GLUCOSE-RANDOM* NEGATIVE (Negative); URINE KETONES 2+ (Negative); URINE LEUKOCYTES-REFLEX TRACE (Negative); URINE NITRITE-REFLEX NEGATIVE (Negative); URINE PROTEIN (DIPSTICK) 1+ (Negative); URINE SPECIFIC GRAVITY >= 1.030 (1.005-1.035); URINE UROBILINOGEN 0.2 E.U./dl (0.2-1.0)
[2020-06-27 16:24] LABS: CALCIUM 8.2 mg/dL (8.5-10.1); CREATININE 0.7 mg/dL (0.6-1.0); POTASSIUM 3.8 mmol/L (3.5-5.1)
[2020-06-27 16:34] LABS: MUCUS >6 Heavy strn/LPF (None Seen); SQUAMOUS 0-3 Few /LPF (0-3)
[2020-06-27 16:35] LABS: CASTS None Seen /LPF (None Seen); CRYSTALS None Seen /LPF (None Seen); URINE RBC 3-10 Few /HPF (0-2); URINE WBC-REFLEX 0-5 Rare /HPF (0-5)
--- NOTE | 2020-06-27 18:59 | NUR ---
PT TRANSFERED TO CCU ROOM 201. PT WAS TRANSFERED VIA WHEELCHAIR. DAUGHTER AT BEDSIDE. PT ALERT AND ORIENTED X3. REPORT GIVEN TO JON CHAMORRO. PT IS STANDBY ASSIST TO CHAIR WITH WALKER. PT NOT COMPLAINING OF ANY PAIN AT THIS MOMENT. CLEAR LIQUID DIET ON HOLD PER DR. KHAN. PT WILL HAVE RAYMUNDO TILL TOMORROW PER DR. MCMAHAN. CONTINUE TO MONITOR.
--- NOTE | 2020-06-27 20:03 | NUR ---
PT. ARRIVED AT THE FLOOR AFTER 1600; PT. ON BED; ALERT; C/O PAIN OVER ABDOMEN; 09/15; REFUSED PRN PAIN MEDICATION; EDUCATED ABOUT PAIN MANAGEMENT; ST. UNDERSTANDING; SR ON THE MONITOR; ABDOMEN INCISION C/D/I; SCHEDULED ACETAMINOPHEN GIVEN; DAUGHTER REQUESTED PT. TO BE UP TO CHAIR; PUT ON CHAIR; ASSIST TO CHAIR; TOLERATED WELL; EDUCATED ABOUT IS; NEEDS REINFORMENT; NOTICED SOME EDEMA; DAUGHTER ASKED IF FLUIDS MIGHT BE STARTED LATER ON THE NIGHT; EDUCATED ABOUT POSSIBLE FLUID OVERLOAD; ST. UNDERSTANDING; URINE OUTPUT WNL; SUGGESTED PT AND OT; DR. MCMAHAN NOTIFIED; ORDERS RECEIVED; ASSESSMENT CHARGED; FOLLOWING POC; PASSED ON REPORT; DURING THE LINE DEPARTMENT SUPERVISOR PER NIGHT CHARGE NURSE PT'S ALLOW TO HAVE ONE TO ONE CARE; SHIRT IRONER SUPERVISOR NOT NOTIFIED DURING THE AFTERNOON; RECEIVED TELEPHONE ORDER DISPATCHER CALL; PER ORLY PEREZ FOR PT'S DAUGHTER TO EXPEND THE NIGHT ONLY FOR TONIGHT, 06/27/2020, LONG WEAR MASK AND DOES NOT LEAVE ROOM; DAUGHTER NOTIFIED; AGREED TO IT; ST. WILL ARRIVED AT 2029; TELEPHONE ORDER DISPATCHER NOTIFIED; CHARGE NURSE NOTIFIED;
[2020-06-28] VITALS: BP 140/83
[2020-06-28 04:06] LABS: 25-HYDROXY TOTAL 28.8 ng/mL (30.0-100.0)
--- NOTE | 2020-06-28 06:00 | NUR ---
PT HAS SLEPT MOST OF NIGHT DENIES PAIN ALERT AND ORIEMTED. ABD INCISION\ DRY AND INTACT. HAD ONE EPISODE OF EMESIS 300 CC BILE COLORED DRG ZOFRAN GIVEN WITH RELIEF. PROGRESSING TOWARD GOALS. WQILL CONT TO MONITOR
[2020-06-28 06:13] LABS: HEMATOCRIT 29.7 % (37.0-47.0); HEMOGLOBIN 9.8 gm/dL (12.0-15.0); MCHC 32.9 g/dL (28.0-37.0); MCV 88.2 fL (80.0-100.0); RBC 3.37 mil/uL (4.20-5.00); RDW 12.7 % (10.5-14.5); WBC 12.6 thou/uL (4.0-11.0)
[2020-06-28 06:31] LABS: CALCIUM 7.7 mg/dL (8.5-10.1); CREATININE 0.6 mg/dL (0.6-1.0); POTASSIUM 3.2 mmol/L (3.5-5.1)
[2020-06-28 07:24] VITALS: BP 149/70
[2020-06-28 12:30] VITALS: BP 146/73
--- NOTE | 2020-06-28 13:07 | O ---
[facility] [place] [address] OPERATIVE REPORT Name: TIERRA BEST Room #: 201-P ADM IN M.R.#: [id number] Admission: 06/23/20 Attend Phys: Carl Smith, Discharge: Date of : 53 Report #: [id number] THIS REPORT FOR: cc: Nahomi Martínez MD, Rochelle M. MD Patterson,Carl Ellsworth MD ~ DATE OF SERVICE: 06/24/2020 PREOPERATIVE DIAGNOSIS: Small-bowel obstruction. POSTOPERATIVE DIAGNOSES: 1. Small-bowel obstruction. 2. Small bowel perforation. OPERATION: 1. Diagnostic laparoscopy. 2. Exploratory laparotomy with lysis of adhesions. 3. Repair of small bowel perforations x 2. SURGEON: Carl Smith MD ANESTHESIA: General. ESTIMATED BLOOD LOSS: 100 mL. SPECIMEN: None. DESCRIPTION OF PROCEDURE: After informed consent was obtained, the patient was brought to the operating room and placed supine. SCDs were placed and working, preoperative antibiotics were administered, general anesthesia was induced. The abdomen was prepped and draped in the usual sterile fashion. A 5 mm incision was made in the left upper quadrant. A 5 mm trocar was placed under direct vision. Pneumoperitoneum was established. I was not able to have any space to work. There was too much scarring of the small bowel and adhesions from previous surgery. Therefore, the laparoscope was removed. A laparotomy incision was made from the umbilicus down to the pubis. A self-retaining retractor was placed. Immediately on entering the abdomen, there was a doss of bilious fluid. I ran the small bowel proximally and distally. I was able to get to the ligament of Treitz. In the distal jejunum, she had 2 small holes in her small bowel. These were leaking the small bowel contents. These were repaired with a single 3-0 Vicryl suture and then a second layer of 3-0 silk pop-offs in Lembert fashion. This closed the defects nicely and both holes were closed. The holes each measured approximately [address] [address] OPERATIVE REPORT Name: TIERRA BEST Room #: 201-P [facility] IN M.R.#: [id number] Admission: 06/23/20 Attend Phys: Carl Smith, Discharge: Date of : 53 Report #: [id number] I then ran the small bowel distally to the cecum. In the distal jejunum, there was a band of mesentery that was causing basically a closed loop obstruction as the bowel had become twisted on it. Once I released this band, the bowel was untwisted. The bowel was not ischemic. I then examined the colon. This appeared normal. I copiously irrigated the abdomen with warm normal saline. There were no areas of injury. The fascia was then closed with an 0 PDS in running fashion. The skin was closed with micki. Sterile dressings were applied. COMPLICATIONS: None. DISPOSITION: The patient was taken to recovery in satisfactory condition. <ELECTRONICALLY SIGNED> By: Carl Smith MD 06/28/20 1307 13 2105 Carl Smith MD /nt
[2020-06-28 14:58] VITALS: BP 147/66
--- NOTE | 2020-06-28 18:19 | NUR ---
assumed care 0700. pt daughter at bedside. daughter states she is a procurement technician at [employer], is very involved in pt plan of care. does majority of speaking for pt. clinimax restarted then changed to d5 0.45 ns w/k+ per family request. attempted to resume pt diet at 1200. pt had small emesis following 30cc of ensure. pt min assist per pt. low grade temp 99.1. not bm. progressing in nursing plan of care.
[2020-06-28 20:13] VITALS: BP 145/77
[2020-06-29 03:45] VITALS: BP 136/64
[2020-06-29 07:51] VITALS: BP 159/83
--- NOTE | 2020-06-29 09:38 | NUR ---
ASSUMED CARE OF PT AT 0700 DAUGHTER AT BEDSIDE AT STATING WHAT SHE FEELS THE PLAN FOR HER MOTHER SHOULD BE TODAY. SHE WANTS THE RAYMUNDO OUT AND TO ADVANCE HER DIET. I TOLD HER SOON THE DOCTOR COMES BY THAT SHE CAN DISCUSS IT WITH HIM.
[2020-06-29 11:56] VITALS: BP 147/80
[2020-06-29 12:14] LABS: HEMATOCRIT 31.3 % (37.0-47.0); HEMOGLOBIN 10.5 gm/dL (12.0-15.0); MCH 29.7 pg (26.0-34.0); MCHC 33.4 g/dL (28.0-37.0); RBC 3.52 mil/uL (4.20-5.00); RDW 12.8 % (10.5-14.5); WBC 10.5 thou/uL (4.0-11.0)
[2020-06-29 12:19] LABS: CALCIUM 7.4 mg/dL (8.5-10.1); CREATININE 0.6 mg/dL (0.6-1.0); MAGNESIUM 1.7 mg/dL (1.8-2.4); POTASSIUM 4.1 mmol/L (3.5-5.1)
--- NOTE | 2020-06-29 13:50 | NUR ---
met with patient and dtr at bedside. Dtr reports want home health at discharge. No preference for home health agency. Patient to stay at dtrs address. rec dtrs cell phone number for HH Rn to call for apt. elizabeth materials planner/production planner to locate agency in [place] with insurance,
[2020-06-29 14:46] VITALS: BP 147/80
--- NOTE | 2020-06-29 14:51 | NUR ---
FAXED REFERRAL TO [facility] SPOKE WITH JOANIE IN INTAKE THEY CAN ACCE[place] PT [place].
[2020-06-29 15:45] VITALS: BP 154/80
[2020-06-29 19:16] VITALS: BP 141/68
--- NOTE | 2020-06-30 03:32 | NUR ---
ASSESSMENTS CHARTED, MEDS CHARTED GIVEN. PATIENT RESTING IN ROOM WITH DAUGHTER AT HER SIDE. RT HAND IV INFILTRATED, NEW IV IN LEFT HAND. ABX THERAPY IV, PATIENT REFUSING LIQUID TYLENOL, STATES THAT IT HURTS HER STOMACH. ACTIVE BOWEL SOUNDS. RAYMUNDO WAS REMOVED PRIOR TO SHIFT CHANGE. PATIENT HAS ADEQUATE URINE OUTPUT. PATIENT WAS UP TO BSC AT START OF SHIFT, THEN BEDPAN DURING THE NIGHT. SURGICAL DRESSING REMAINS INTACT. FALL PRECAUTIONS IN PLACE DURING SHIFT.
[2020-06-30 05:04] VITALS: BP 144/67
[2020-06-30 05:56] LABS: HEMATOCRIT 30.4 % (37.0-47.0); HEMOGLOBIN 10.2 gm/dL (12.0-15.0); MCH 29.7 pg (26.0-34.0); MCHC 33.4 g/dL (28.0-37.0); MCV 89.1 fL (80.0-100.0); RBC 3.42 mil/uL (4.20-5.00); RDW 12.6 % (10.5-14.5); WBC 10.2 thou/uL (4.0-11.0)
[2020-06-30 06:00] LABS: CALCIUM 7.5 mg/dL (8.5-10.1); CREATININE 0.5 mg/dL (0.6-1.0); MAGNESIUM 1.9 mg/dL (1.8-2.4); POTASSIUM 3.6 mmol/L (3.5-5.1)
[2020-06-30 08:12] VITALS: BP 140/81
[2020-06-30 11:57] VITALS: BP 119/67
--- NOTE | 2020-06-30 12:50 | NUR ---
VASCULAR ACCESS NURSE ROUNDING TO START A PERIPHERAL IV. #20 IV STARTED WITH ULTRASOUND IN THE LEFT FOREARM. THE RIGHT AND LEFT HAND PIV LINES, NONFUNCTIONAL, WERE REMOVED. ON ASSEMENT IT WAS NOTED THAT RIGHT AC WAS RED WITH A PALPAPLE CORD AND SWELLING ABOVE A PRIOR IV SITE THAT WAS PLACED ON ADMIT. RC WEBB, THE PATIENTS NURSE WAS NOTIFIED OF FINDING.
--- NOTE | 2020-06-30 14:27 | NUR ---
[facility] HERNÁNDEZ notified that dc not anticipated till tomorrow per the attending. Pt on full liquid diet today and advancing as tolerated. Will follow.
[2020-06-30 15:23] VITALS: BP 145/71
--- NOTE | 2020-06-30 15:36 | NUR ---
ASSESSSMENT CHARTED. PT ALERT AND ORIENTED. UP IN THE CHAIR. AMBULATED X3. ABD INCISION C/D/I WITH [address] ABD BINDER WITH AMBULATION. DENIED HAVING PAIN. NO CONCERNS AT THIS TIME. PROGRESSING WELL TOWARDS DISCHARGE GOAL.
[2020-06-30 19:34] VITALS: BP 145/92
--- NOTE | 2020-07-01 03:17 | NUR ---
ASSESSMENTS CHARTED, MEDS CHARTED GIVEN. RESTING IN RECLINER AND IN THE BED. USING BSC DURING DAY AND BEDPAN AT NIGHT. DIMINISHED ON ROOM AIR. GOOD URINE OUTPUT. PATIENT WAS ABLE TO DRINK ONE ENSURE DURING DAY SHIFT. PLAN OF CARE IS TO CONTINUE ABX THERAPY, PRECIOUS RICO, WEARING ABD BINDER WHEN UP WALKING OR WORKING WITH PT. CHECK FOR ILEUS RESOLUTION. FALL PRECAUTIONS IN PLACE DURING SHIFT.
[2020-07-01 05:20] VITALS: BP 152/77
[2020-07-01 08:00] VITALS: BP 130/55
[2020-07-01 12:00] VITALS: BP 111/44
[2020-07-01 15:30] VITALS: BP 108/40
--- NOTE | 2020-07-01 16:03 | NUR ---
Case discussed with the care team. No weekend dc anticipated. Slowly progressing postop. Pt still on full liquid diet and not taking much. She is getting IVF and IV atb and routine labs. Her dtr who is a wharfmaster is at bedside and very attentive. Plan for home with early next week. [facility] has accepted and have been updated.
[2020-07-01 19:00] VITALS: BP 112/57
--- NOTE | 2020-07-01 19:50 | NUR ---
RECEIVED PT'S CARE AROUND 07; PT. ON BED; DAUGHTER AT THE BED SIDE; ALERT; SR ON THE MONITOR; DURING AM ASSESSMENT AOX4; NO C/O PAIN; THROUGH THE DAY REFUSED SCHEDULED ACETAMINOPHEN; DAUGHTER REQUESTED LABS IN THE AM; DR. DAVID AND DR. CHRISTOPHER NOTIFIED; PER PHYSICIANS PT. DOES NOT NEED LABS; BERTHA AND PT. NOTIFIED; PER DR. DAVID OK TO D/C FLUIDS; DR. CHRISTOPHER NOTIFIED; ORDERS ON PLACED; FLUIDS D/C; PT. AND DAUGHTER EDUCATED ABOUT THE IMPORTANCE OF AMBULATING; ST. UNDERSTANDING; PT. ABLE TO AMBULATE WITH PT DURING AM AROUND THE UNIT; TOLERATED WELL; AMBULATE WITH DAUGHTER DURING THE PM; PER DR. DAVID DIET ADVANCE TO REGULAR LOW FIBER; TOLERATE WELL LUNCH AND DINNER; ASSESSMENT CHARGED; FOLLOWING POC; PASSED ON REPORT;
[2020-07-02 04:31] VITALS: BP 126/61
--- NOTE | 2020-07-02 07:20 | NUR ---
PT HAD X4 LIQUID BMS THIS SHIFT. ID NOTIFIED. CDIFF ORDERED.
[2020-07-02 07:25] VITALS: BP 126/69
[2020-07-02 07:58] LABS: ABSOLUTE NEUTROPHILS 7.1 thou/uL (1.4-8.2); BASOPHILS 0.6 % (0.0-2.0); EOSINOPHILS 3.5 % (0.0-3.0); HEMOGLOBIN 10.9 gm/dL (12.0-15.0); LYMPHOCYTES 15.6 % (24.0-44.0); MCH 29.2 pg (26.0-34.0); MCV 88.5 fL (80.0-100.0); MONOCYTES 10.6 % (1.0-8.0); POLYS 69.7 % (36.0-66.0); RBC 3.73 mil/uL (4.20-5.00); RDW 13.2 % (10.5-14.5); WBC 10.3 thou/uL (4.0-11.0)
[2020-07-02 07:59] LABS: PLATELET COUNT 287 thou/uL (150-400)
[2020-07-02 08:17] LABS: CREATININE 0.8 mg/dL (0.6-1.0); POTASSIUM 3.7 mmol/L (3.5-5.1); TOTAL BILIRUBIN 0.5 mg/dL (0.2-1.0); TOTAL PROTEIN 5.5 g/dL (6.4-8.2)
[2020-07-02 15:15] VITALS: BP 108/64
--- NOTE | 2020-07-02 15:55 | NUR ---
PT ALERT AND ORIENTED. DENIED HAVING PAIN. ABD INCISION C/D/I. UP IN THE CHAIR THIS SHIFT. AMBULATED X3. NO CONCERNS AT THIS TIME. WILL CONTINUE TO MONITOR.
[2020-07-02 20:00] VITALS: BP 119/49
[2020-07-03 07:35] VITALS: BP 134/61
--- NOTE | 2020-07-03 07:54 | NUR ---
PT IV INFILTRATED IN LEFT FOREARM. NEW SITE ESTABLISHED IN RIGHT TOP WRIST WITH 22GA. PT UP WITH X1 ASSIST TO BSC. VSS OVERNIGHT AND NO COMPLAINTS.
[2020-07-03 15:15] VITALS: BP 114/55
--- NOTE | 2020-07-03 16:34 | NUR ---
ASSESSMENT CHARTED. PT ALERT AND ORIENTED. VSS. DENIED HAVING PAIN OR DISCOMFORT. UP IN THE CHAIR THIS SHIFT. AMBULATED X3. ABD INCISION C/D/I WITH ALEYDA COVERED WITH BANDAGE. NO CONCERNS AT THIS TIME. PT PROGRESSING WELL TOWARDS DISCHARGE GOAL.
[2020-07-03 19:42] VITALS: BP 123/67
[2020-07-04 00:15] VITALS: BP 122/70
--- NOTE | 2020-07-04 03:45 | NUR ---
REFUSED SCHEDULED TYLENOL,VOIDS PER BEDPAN WITH ADEQUATE URINE OUTPUT.PT IS HOPING TO GO HOME TODAY.MONITOR SHOWS SR.POC CONTINUED.
[2020-07-04] MEDS ORDERED: NORCO5 PO (07:24)
[2020-07-04 08:00] VITALS: BP 108/50
[2020-07-04 11:15] VITALS: BP 119/54
[2020-07-04 12:37] VITALS: BP 110/54
--- NOTE | 2020-07-04 13:20 | NUR ---
ASSESSMENT CHARTED. PT ALERT AND ORIENTED. VSS. DENIED HAVING PAIN OR DISCOMFORT. UP IN THE CHAIR THIS SHIFT. ORDERS GIVEN TO DISCHARGE PT TO HOME WITH HOMEHEALTH. DISCHARGE INSTRUCTIONS GIVEN TO PT. PT VERBERLISED UNDERSTANDING. PT LEFT THE FACILITY ACCOMPANIED BY THE DAUGHTER.
--- NOTE | 2020-07-04 13:21 | NUR ---
PT DISCHARGING TODAY TO HOME WITH [facility] FAXED DC ORDERS/SUMMARY SPOKE WITH KEIRY IN INTAKE THEY RECEIVED ORDERS AND WILL ARRANGE VISITS WITH PT.
== END 2020-07-04 13:22 | disposition home health service (06) | DRG 329 ==
LOC: ER 00:56 → ICU 05:28 → EROBS 05:28 → 4W 05:28 → 2N 05:28 → 4W 06:43 → ICU 06-24 19:16 → 2N 06-27 16:01
PROVIDERS: Emergency Medicine; Internal Medicine; Internal Medicine Nephrology; Nurse Practitioner Acute Care; Specialist; ADMIT Surgery; ATTEND Surgery
PROC: 0DQ80ZZ Repair Small Intestine, Open Approach (ICD-10-PCS; principal; 2020-06-24)
PROC: 0WJG4ZZ Inspection of Peritoneal Cavity, Percutaneous Endoscopic Approach (ICD-10-PCS; 2020-06-24)
DX: K56.50 Intestinal adhesions [bands], unspecified as to partial versus complete obstruction (principal); K63.1 Perforation of intestine (nontraumatic); K65.9 Peritonitis, unspecified; N17.0 Acute kidney failure with tubular necrosis; J96.01 Acute respiratory failure with hypoxia; E46 Unspecified protein-calorie malnutrition; J98.11 Atelectasis; Z20.822 Contact with and (suspected) exposure to COVID-19; I10 Essential (primary) hypertension; F20.9 Schizophrenia, unspecified; E78.5 Hyperlipidemia, unspecified; E83.51 Hypocalcemia; E83.42 Hypomagnesemia; R53.81 Other malaise; Z90.49 Acquired absence of other specified parts of digestive tract; Z88.0 Allergy status to penicillin; Z88.8 Allergy status to other drugs, medicaments and biological substances; Z68.26 Body mass index [BMI] 26.0-26.9, adult; Z53.31 Laparoscopic surgical procedure converted to open procedure; E83.39 Other disorders of phosphorus metabolism
CPT/HCPCS: 10047; 10078; 10081; 10204; 50010; 50101; 50411; 50555; 50883; 51412; 52265; 52266; 53307; 56462; 56524; 56525; 56526; 56528; 57103; 58574; 62110; 62900; 70005